=== PATIENT | male | born 1980 | race Caucasian/White ===

== ENCOUNTER 2019-02-23 15:09 | Emergency (ER) | payer OTHER ==
[~2019-02-23] VITALS: Ht 185.4 cm; Wt 139.8 kg
--- NOTE | 2019-02-23 16:38 | REP ---
Three views right hip and pelvis. Indication: Hip and pelvic trauma. Comparison: None. Findings: There is no acute fracture, subluxation or dislocation. The visualized soft tissues are unremarkable. Findings: No acute osseous injury of the right hip or pelvis. Electronically Signed by Niraj Escoto DO 02/23/2019 04:29 P
--- NOTE | 2019-02-23 16:40 | REP ---
Four views left tibia / fibula: 02/23/2019. Indication: Pain following trauma. Comparison: None. Findings: There is no acute fracture, subluxation or dislocation. No acute soft tissue injuries are not tectum. There is no significant joint effusion. Impression: No acute left tibia/fibula fracture. Electronically Signed by Niraj Escoto DO 02/23/2019 04:32 P
--- NOTE | 2019-02-23 16:43 | REP ---
Four views right wrist: 02/23/2019. Indication: Pain following injury. Comparison: None. Findings: There is no acute fracture, subluxation or dislocation. Alignment is anatomic. No erosive lesions of the visualized bones are present. Impression: No acute osseous right wrist injury. Electronically Signed by Niraj Escoto DO 02/23/2019 04:35 P
[2019-02-23 16:57] VITALS: BP 180/108
== END 2019-02-23 17:10 | disposition home or self-care (01) ==
LOC: M ED 15:09
DX: S80.812A Abrasion, left lower leg, initial encounter (principal); S60.221A Contusion of right hand, initial encounter; S70.01XA Contusion of right hip, initial encounter; V43.52XA Car driver injured in collision with other type car in traffic accident, initial encounter; Y92.410 Unspecified street and highway as the place of occurrence of the external cause; Y93.9 Activity, unspecified; Y99.9 Unspecified external cause status; Z87.891 Personal history of nicotine dependence